=== PATIENT | female | born 1970 | race Caucasian/White ===

== ENCOUNTER → 2018-02-07 | Outpatient (CLI) | payer BC ==
[2014-12-27 20:24] VITALS: BP 140/95
--- NOTE | 2018-02-07 15:31 | MRI ---
MRI lumbar spine without contrast Indication: Back pain Technique: Multisequence, multiplanar MR images of the lumbar spine were obtained without IV contrast . Comparison: None Findings: L4 hemangioma is noted. Vertebral body heights, alignment and marrow signal are otherwise n ormal. No acute fracture, subluxation or suspicious osseous lesion is identified. The conus terminate s normally at T12-L1. The cauda equina is unremarkable. Partially visualized right ovarian cyst noted . Remaining unenhanced paraspinal soft tissues are grossly unremarkable. T12-L1: Unremarkable L1-L2: Unremarkable L2-L3: Unremarkable L3-L4: Very mild broad-based disc bulge and facet arthropathy without significant canal or foraminal stenosis. L4-L5: Mild broad-based disc bulge and facet arthropathy without significant canal or foraminal steno sis. L5-S1: Mild broad-based disc bulge, facet arthropathy and ligamentum thickening without significant c anal or foraminal stenosis. Impression: Mild degenerative changes of the mid and lower lumbar spine, as above without high-grade canal or for aminal compromise identified at any level. Reported By:
== END | disposition home or self-care (01) ==
LOC: RAD 14:03
PROVIDERS: ATTEND Internal Medicine
DX: M51.26 Other intervertebral disc displacement, lumbar region (principal); M51.27 Other intervertebral disc displacement, lumbosacral region; M47.896 Other spondylosis, lumbar region; M47.897 Other spondylosis, lumbosacral region
CPT/HCPCS: 72148